=== PATIENT | male | born 1930 | race Asian ===

== ENCOUNTER 2017-01-09 08:00 | Day surgery (SDC) | payer MEDICARE, OTHER ==
[~2017-01-09] VITALS: Ht 166.4 cm; Wt 77.2 kg
[~2017-01-09 08:00] MED LIST: ASPI81TA39 PO; CLOP75TA32 PO; METO50TA12 PO; ROSU10 PO; TRAM50TA4 PO; VALS160T2 PO; VITAD1000 PO
[2017-01-09] MEDS ORDERED: HYALURONATE SODIUM 12 MG/ML 0.8 ML SYRINGE IO ONE (08:01)
[2017-01-09] MEDS ORDERED: FentaNYL CITRATE-PF 100 MCG/2 ML VIAL IVP ONE (08:01)
[2017-01-09] MEDS ORDERED: TETRACAINE HCL VISCOUS 0.5% 5 ML OPHTHALMIC SOLUTION OD ONE (08:01)
[2017-01-09] MEDS ORDERED: DEXAMETHASONE SOD PHOS 4 MG/ML VIAL IVP ONE (08:01)
[2017-01-09] MEDS ORDERED: HYALURONATE SOD/CHONDROITIN SOD 0.5 ML VIAL IO ONE (08:01)
[2017-01-09] MEDS ORDERED: ACETYLCHOLINE CHLORIDE 1 EA INTRAOCULAR SOLUTION KIT IO ONE (08:01)
[2017-01-09] MEDS ORDERED: POVIDONE-IODINE 10% 15 ML SOLUTION UD TP ONE (08:01)
[2017-01-09] MEDS ORDERED: LIDOCAINE HCL/PF 1% 2 ML VIAL IM ONE (08:01)
[2017-01-09] MEDS ORDERED: MIDAZOLAM HCL 2 MG/2 ML VIAL IVP ONE (08:01)
[2017-01-09] MEDS ORDERED: RINGERS SOLUTION,LACTATED 500 ML IV ONE ×2 (08:17→09:00)
[2017-01-09] MEDS ORDERED: MOXIFLOXACIN HCL 0.5% 3 ML OPHTHALMIC SOLUTION ONE (08:18)
[2017-01-09] MEDS ORDERED: TROPICAMIDE 1% 2 ML OPHTHALMIC SOLUTION ONE (08:18)
[2017-01-09] MEDS ORDERED: PHENYLEPHRINE HCL 2.5% 2 ML OPHTHALMIC SOLUTION ONE (08:18)
[2017-01-09] MEDS ORDERED: DICLOFENAC SODIUM 0.1% 2.5 ML OPHTHALMIC SOLUTION ONE (08:18)
[2017-01-09] MEDS ORDERED: MOXIFLOXACIN HCL 0.5% 3 ML OPHTHALMIC SOLUTION OD ONE (09:00)
[2017-01-09] MEDS ORDERED: DICLOFENAC SODIUM 0.1% 2.5 ML OPHTHALMIC SOLUTION OD ONE (09:00)
[2017-01-09] MEDS: PHENYLEPHRINE HCL 2.5% 2 ML OPHTHALMIC SOLUTION OD SCH ×2 (09:18→09:23)
[2017-01-09] MEDS: TROPICAMIDE 1% 2 ML OPHTHALMIC SOLUTION OD SCH ×2 (09:18→09:23)
== END 2017-01-09 12:00 | disposition home or self-care (01) ==
LOC: SURGERY 08:00
PROVIDERS: ATTEND Specialist
DX: H25.011 Cortical age-related cataract, right eye (principal); E78.00 Pure hypercholesterolemia, unspecified; M19.90 Unspecified osteoarthritis, unspecified site; H40.9 Unspecified glaucoma; I10 Essential (primary) hypertension; I25.119 Atherosclerotic heart disease of native coronary artery with unspecified angina pectoris; Z72.89 Other problems related to lifestyle; Z91.013 Allergy to seafood; Z79.01 Long term (current) use of anticoagulants; Z79.82 Long term (current) use of aspirin; Z96.652 Presence of left artificial knee joint; Z87.891 Personal history of nicotine dependence
CPT/HCPCS: 0191T; 66984; 93005; J1100; J2250; J3010; J3490; J7120

== ENCOUNTER 2017-03-02 08:43 | Inpatient (IN) | payer MEDICARE, OTHER ==
[~2017-03-02] VITALS: Ht 160 cm; Wt 72.7 kg
[~2017-03-02 08:43] MED LIST changes: +METO-558 PO; -METO50TA12 PO
[2017-03-02 09:30] LABS: BASOPHILS % (AUTO) 0.3 % (0.0-2.0); EOSINOPHILS % (AUTO) 1.9 % (1.0-6.0); HEMATOCRIT 39.9 % (41-53); HEMOGLOBIN 13.6 g/dL (13.5-17.5); LYMPHOCYTES # (AUTO) 1.2 K/uL (1.0-4.8); LYMPHOCYTES % (AUTO) 12.4 % (22.0-44.0); MEAN CORPUSCULAR HEMOGLOBIN 33.7 pg (26.0-34.0); MEAN CORPUSCULAR VOLUME 99 fL (80-100); MONOCYTES # (AUTO) 0.6 K/uL (0.1-1.0); MONOCYTES % (AUTO) 5.7 % (2.0-9.0); NEUTROPHILS # (AUTO) 7.7 K/uL (1.8-7.7); NEUTROPHILS % (AUTO) 79.7 % (40.0-70.0); PLATELET COUNT (AUTO) 118 K/uL (150-450); RED BLOOD CELL COUNT(AUTO) 4.02 MIL/uL (4.50-5.90); RED CELL DISTRIBUTION WIDTH 12.8 % (11.5-14.5); WHITE BLOOD COUNT (AUTO) 9.7 K/uL (4.5-11.0)
[2017-03-02 09:40] LABS: ANION GAP 4 mmol/L (8-16); CALCIUM, TOTAL 8.2 mg/dL (8.8-10.5); CARBON DIOXIDE 30 mmol/L (22-29); CHLORIDE 100 mmol/L (98-107); CREATININE 0.78 mg/dL (0.60-1.30); GLOMERULAR FILTR. RATE CALC > 60 mL/min (>60); POTASSIUM 4.4 mmol/L (3.5-5.1); SODIUM SERUM 134 mmol/L (136-145); UREA NITROGEN, BLOOD 13 mg/dL (7-18)
[2017-03-02 09:50] LABS: B-TYPE NATRIURETIC PEPTIDE 293 pg/mL (0-100)
[2017-03-02 10:01] LABS: APPEARANCE,URINE CLEAR (CLEAR); GLUCOSE, URINE (UA) NEGATIVE (NEGATIVE); KETONES,URINE NEGATIVE (NEGATIVE); LEUKOCYTE ESTERASE ,URINE NEGATIVE (NEGATIVE); OCCULT BLOOD,URINE TRACE (NEGATIVE); PROTEIN,URINE SEE CONFIRM (NEGATIVE)
[2017-03-02 10:02] LABS: ADD UA MICROSCOPIC YES
[2017-03-02 10:05] LABS: ALANINE AMINOTRANSFERASE 26 U/L (12-78); ALBUMIN 3.5 g/dL (3.4-5.0); ASPARTATE AMINOTRANSFERASE 22 U/L (15-37); BILIRUBIN,TOTAL 0.7 mg/dL (0.1-1.0); CREATINE KINASE MB 3.4 ng/mL (0-5); CREATINE KINASE, TOTAL 96 U/L (39-308); TOTAL PROTEIN, SERUM 7.2 g/dL (6.4-8.2)
[2017-03-02 10:09] LABS: SULFOSALICYLIC ACID,URINE 1+ (Negative)
[2017-03-02 10:11] LABS: RBC,URINE 0-2 /HPF (0-2); SQUAMOUS EPITHELIAL CELL,UR Rare /LPF (None Seen); WBC,URINE None Seen /HPF (0-5)
[2017-03-02] MEDS ORDERED: FUROSEMIDE 40 MG/4 ML VIAL IVP ONE (10:30)
[2017-03-02] MEDS ORDERED: MAGNESIUM HYDROXIDE SUSPENSION 30 ML UDCUP PO PRN (10:45)
[2017-03-02] MEDS ORDERED: ALBUTEROL SULFATE 2.5 MG/0.5 ML NEB SOLUTION NEB PRN (10:45)
[2017-03-02] MEDS ORDERED: OxyCODONE HCL/ACETAMINOPHEN 5-325 MG TABLET PO PRN (10:45)
[2017-03-02] MEDS: CLOPIDOGREL BISULFATE 75 MG TABLET PO SCH (10:45)
[2017-03-02] MEDS: ASPIRIN 81 MG CHEWABLE TABLET PO SCH (10:45)
[2017-03-02 12:08] VITALS: BP 105/71
[2017-03-02] MEDS ORDERED: PNEUMOCOCCAL VACCINE POLYVALENT 0.5 ML VIAL [PPSV23] IM ONE (12:45)
[2017-03-02] MEDS ORDERED: INFLUENZA VIRUS VACCINE QVS 2017-18 (3YR+)/PF 60 MCG/0.5 ML SYRINGE IM ONE (12:45)
[2017-03-02 15:04] VITALS: BP 120/74
[2017-03-02] MEDS: HEPARIN SODIUM,PORCINE 5,000 UNITS/ML VIAL SQ SCH (16:31)
[2017-03-02 19:54] VITALS: BP 113/68
[2017-03-02] MEDS: ROSUVASTATIN CALCIUM 10 MG TABLET PO SCH (21:51)
[2017-03-02] MEDS: DOCUSATE SODIUM 100 MG CAPSULE PO SCH (21:51)
[2017-03-03] VITALS: BP 105/65
[2017-03-03] MEDS: HEPARIN SODIUM,PORCINE 5,000 UNITS/ML VIAL SQ SCH ×4 (00:32→23:11)
[2017-03-03 04:11] VITALS: BP 102/58
[2017-03-03 07:45] VITALS: BP 108/65
[2017-03-03 08:16] LABS: ANION GAP 2 mmol/L (8-16); CALCIUM, TOTAL 8.1 mg/dL (8.8-10.5); CARBON DIOXIDE 34 mmol/L (22-29); CHLORIDE 94 mmol/L (98-107); GLOMERULAR FILTR. RATE CALC > 60 mL/min (>60); POTASSIUM 4.4 mmol/L (3.5-5.1); SODIUM SERUM 130 mmol/L (136-145); UREA NITROGEN, BLOOD 12 mg/dL (7-18)
[2017-03-03] MEDS: DOCUSATE SODIUM 100 MG CAPSULE PO SCH ×2 (09:17→20:09)
[2017-03-03] MEDS: PANTOPRAZOLE SODIUM 40 MG DR TABLET PO SCH (09:17)
[2017-03-03] MEDS: ASPIRIN 81 MG CHEWABLE TABLET PO SCH (09:17)
[2017-03-03] MEDS: CLOPIDOGREL BISULFATE 75 MG TABLET PO SCH (09:17)
[2017-03-03 11:47] VITALS: BP 132/48
[2017-03-03] MEDS ORDERED: FUROSEMIDE 20 MG TABLET PO SCH (13:15)
[2017-03-03 15:50] VITALS: BP 126/74
[2017-03-03 19:43] VITALS: BP 125/72
[2017-03-03] MEDS: ROSUVASTATIN CALCIUM 10 MG TABLET PO SCH (20:09)
[2017-03-04 00:29] VITALS: BP 147/79
[2017-03-04 03:52] VITALS: BP 144/80
[2017-03-04 06:28] LABS: BASOPHILS # (AUTO) 0.02 K/uL (0.00-0.20); BASOPHILS % (AUTO) 0.2 % (0.0-2.0); EOSINOPHILS # (AUTO) 0.11 K/uL (0.00-0.70); EOSINOPHILS % (AUTO) 1.16 % (1.0-6.0); HEMATOCRIT 38.6 % (41-53); HEMOGLOBIN 12.9 g/dL (13.5-17.5); LYMPHOCYTES # (AUTO) 1.5 K/uL (1.0-4.8); LYMPHOCYTES % (AUTO) 15.8 % (22.0-44.0); MEAN CORPUSCULAR HEMOGLOBIN 33.2 pg (26.0-34.0); MEAN CORPUSCULAR HGB CONC 33.4 G/dL (31.0-37.0); MEAN CORPUSCULAR VOLUME 99 fL (80-100); MONOCYTES # (AUTO) 0.7 K/uL (0.1-1.0); MONOCYTES % (AUTO) 7.9 % (2.0-9.0); PLATELET COUNT (AUTO) 92 K/uL (150-450); RED BLOOD CELL COUNT(AUTO) 3.88 MIL/uL (4.50-5.90); RED CELL DISTRIBUTION WIDTH 12.4 % (11.5-14.5); WHITE BLOOD COUNT (AUTO) 9.3 K/uL (4.5-11.0)
[2017-03-04 06:40] LABS: ANION GAP 6 mmol/L (8-16); CALCIUM, TOTAL 8.2 mg/dL (8.8-10.5); CARBON DIOXIDE 34 mmol/L (22-29); CHLORIDE 90 mmol/L (98-107); CREATININE 0.73 mg/dL (0.60-1.30); GLOMERULAR FILTR. RATE CALC > 60 mL/min (>60); POTASSIUM 4.3 mmol/L (3.5-5.1); SODIUM SERUM 130 mmol/L (136-145); UREA NITROGEN, BLOOD 15 mg/dL (7-18)
[2017-03-04 07:30] VITALS: BP 143/78
[2017-03-04] MEDS ORDERED: FUROSEMIDE 20 MG TABLET JT SCH (09:00)
[2017-03-04] MEDS ORDERED: FURO-152 PO (09:03)
[2017-03-04] MEDS ORDERED: FUROSEMIDE 20 MG/2 ML VIAL IVP SCH (09:23)
[2017-03-04] MEDS: NITROGLYCERIN 2% (1 GM=INCH) PACKET TP SCH ×2 (09:26→16:38)
[2017-03-04] MEDS: PANTOPRAZOLE SODIUM 40 MG DR TABLET PO SCH (09:27)
[2017-03-04] MEDS: ASPIRIN 81 MG CHEWABLE TABLET PO SCH (09:27)
[2017-03-04] MEDS: DOCUSATE SODIUM 100 MG CAPSULE PO SCH ×2 (09:27→21:30)
[2017-03-04] MEDS: CLOPIDOGREL BISULFATE 75 MG TABLET PO SCH (09:27)
[2017-03-04] MEDS ORDERED: METOPROLOL SUCCINATE 50 MG ER TABLET PO ONE (09:45)
[2017-03-04 12:00] VITALS: BP 118/69
[2017-03-04] MEDS: APIXABAN 5 MG TABLET PO SCH ×2 (13:19→21:30)
[2017-03-04] MEDS ORDERED: AMIODARONE HCL 50 MG in DEXTROSE 5%-WATER 97 ML IV ONE (15:30)
[2017-03-04] MEDS ORDERED: AMIODARONE HCL 50 MG in DEXTROSE 5%-WATER 99 ML IV ONE (15:30)
[2017-03-04 15:39] VITALS: BP 111/66
[2017-03-04] MEDS ORDERED: AMIODARONE HCL 360 MG in DEXTROSE 5%-WATER 242.8 ML IV ONE (15:40)
[2017-03-04 20:14] VITALS: BP 105/56
[2017-03-04] MEDS ORDERED: METOPROLOL SUCCINATE 50 MG ER TABLET PO SCH (21:00)
[2017-03-04] MEDS: ROSUVASTATIN CALCIUM 10 MG TABLET PO SCH (21:29)
[2017-03-04] MEDS ORDERED: AMIODARONE HCL 540 MG in DEXTROSE 5%-WATER 239.2 ML IV ONE (21:40)
[2017-03-05] VITALS (10 sets, daily range): BP systolic 106–202; BP diastolic 53–108
[2017-03-05] MEDS: NITROGLYCERIN 2% (1 GM=INCH) PACKET TP SCH ×4 (00:48→23:56)
[2017-03-05 06:19] LABS: BASOPHILS % (AUTO) 0.3 % (0.0-2.0); HEMATOCRIT 36.5 % (41-53); HEMOGLOBIN 12.6 g/dL (13.5-17.5); LYMPHOCYTES # (AUTO) 1.3 K/uL (1.0-4.8); LYMPHOCYTES % (AUTO) 14.5 % (22.0-44.0); MEAN CORPUSCULAR HGB CONC 34.4 G/dL (31.0-37.0); MEAN CORPUSCULAR VOLUME 99 fL (80-100); MONOCYTES # (AUTO) 0.9 K/uL (0.1-1.0); MONOCYTES % (AUTO) 9.9 % (2.0-9.0); NEUTROPHILS # (AUTO) 6.5 K/uL (1.8-7.7); NEUTROPHILS % (AUTO) 72.3 % (40.0-70.0); PLATELET COUNT (AUTO) 98 K/uL (150-450); RED BLOOD CELL COUNT(AUTO) 3.69 MIL/uL (4.50-5.90); RED CELL DISTRIBUTION WIDTH 12.7 % (11.5-14.5); WHITE BLOOD COUNT (AUTO) 8.9 K/uL (4.5-11.0)
[2017-03-05 06:34] LABS: ALANINE AMINOTRANSFERASE 18 U/L (12-78); ALBUMIN 3.3 g/dL (3.4-5.0); ANION GAP 2 mmol/L (8-16); ASPARTATE AMINOTRANSFERASE 16 U/L (15-37); BILIRUBIN,TOTAL 1.2 mg/dL (0.1-1.0); CALCIUM, TOTAL 8.2 mg/dL (8.8-10.5); CARBON DIOXIDE 34 mmol/L (22-29); CHLORIDE 87 mmol/L (98-107); CREATININE 0.77 mg/dL (0.60-1.30); GLOMERULAR FILTR. RATE CALC > 60 mL/min (>60); POTASSIUM 4.6 mmol/L (3.5-5.1); TOTAL PROTEIN, SERUM 6.8 g/dL (6.4-8.2); UREA NITROGEN, BLOOD 19 mg/dL (7-18)
[2017-03-05 06:49] LABS: SODIUM SERUM 123 mmol/L (136-145)
[2017-03-05] MEDS: ONDANSETRON HCL 4 MG/2 ML VIAL IVP PRN ×3 (08:26→12:30)
[2017-03-05] MEDS ORDERED: SODIUM CHLORIDE 0.9% 1,000 ML IV ONE (08:30)
[2017-03-05] MEDS ORDERED: TOLVAPTAN 15 MG TABLET PO ONE (10:00)
[2017-03-05] MEDS: DOCUSATE SODIUM 100 MG CAPSULE PO SCH ×2 (10:05→20:02)
[2017-03-05] MEDS: PANTOPRAZOLE SODIUM 40 MG DR TABLET PO SCH (10:05)
[2017-03-05] MEDS: CLOPIDOGREL BISULFATE 75 MG TABLET PO SCH (10:05)
[2017-03-05] MEDS: APIXABAN 5 MG TABLET PO SCH (10:05)
[2017-03-05] MEDS ORDERED: 0.9% SODIUM CHLORIDE 5 ML NEB SOLUTION NEB ONE (10:57)
[2017-03-05] MEDS ORDERED: ONDANSETRON HCL 4 MG/2 ML VIAL IVP PRN (11:00)
[2017-03-05 12:46] LABS: ABG A-A DIFF O2 261.7 mmHg (10-20.0); ABG BASE EXCESS 2.3 mmol/L (-2.0-3.0); ABG HCO3 23.8 mmol/L (22.0-26.0); ABG OXYHEMOGLOBIN 89.7 % (94.0-100.0); ABG PCO2 87 mmHg (35-45); ABG PH 7.169 (7.35-7.450); TEMPERATURE, FAHRENHEIT, BG 97.5 FAHREN (96.0-98.6)
[2017-03-05 12:47] LABS: ALLEN TEST, BLOOD GAS Positive
[2017-03-05] MEDS ORDERED: RAPID SEQUENCE KIT [RSI] 1 EACH KIT ONE ×2 (13:30)
[2017-03-05] MEDS ORDERED: SUCCINYLCHOLINE CHLORIDE 20 MG/ML 10 ML VIAL ONE (13:31)
[2017-03-05 13:47] LABS: ANION GAP 3 mmol/L (8-16); CALCIUM, TOTAL 6.9 mg/dL (8.8-10.5); CARBON DIOXIDE 33 mmol/L (22-29); CHLORIDE 93 mmol/L (98-107); CREATININE 0.98 mg/dL (0.60-1.30); GLOMERULAR FILTR. RATE CALC > 60 mL/min (>60); POTASSIUM 5.4 mmol/L (3.5-5.1); SODIUM SERUM 129 mmol/L (136-145); UREA NITROGEN, BLOOD 20 mg/dL (7-18)
[2017-03-05] MEDS ORDERED: NOREPINEPHRINE 4 MG/D5%-WATER 250 ML IV ONE (13:47)
[2017-03-05] MEDS ORDERED: DOPamine HCL 400 MG/D5%-WATER 250 ML IV ONE (13:50)
[2017-03-05 13:55] LABS: B-TYPE NATRIURETIC PEPTIDE 210 pg/mL (0-100)
[2017-03-05] MEDS ORDERED: DOPamine HCL 400 MG/D5%-WATER 250 ML IV PRN (14:01)
[2017-03-05] MEDS: NOREPINEPHRINE 4 MG/D5%-WATER 250 ML IV PRN ×2 (14:12→20:03)
[2017-03-05] MEDS: LORazepam 2 MG/ML VIAL IVP PRN ×4 (14:21→20:02)
[2017-03-05] MEDS ORDERED: DEXTROSE 5%-WATER 1,000 ML IV SCH (14:45)
[2017-03-05] MEDS ORDERED: AMIODARONE HCL 750 MG in DEXTROSE 5%-WATER 485 ML IV SCH (15:30)
[2017-03-05 15:48] LABS: ABG A-A DIFF O2 444.3 mmHg (10-20.0); ABG BASE EXCESS 4.3 mmol/L (-2.0-3.0); ABG HCO3 27.4 mmol/L (22.0-26.0); ABG OXYHEMOGLOBIN 98.1 % (94.0-100.0); ABG PCO2 51 mmHg (35-45); ABG PH 7.379 (7.35-7.450); TEMPERATURE, FAHRENHEIT, BG 97.7 FAHREN (96.0-98.6)
[2017-03-05] MEDS: FentaNYL CITRATE PF 500 MCG in DEXTROSE 5%-WATER 90 ML IV PRN ×2 (15:48→18:56)
[2017-03-05 15:49] LABS: ALLEN TEST, BLOOD GAS Positive
[2017-03-05] MEDS ORDERED: FUROSEMIDE 40 MG/4 ML VIAL IVP ONE (18:00)
[2017-03-05] MEDS ORDERED: FUROSEMIDE 40 MG/4 ML VIAL ONE (18:01)
[2017-03-05 18:16] LABS: PROCALCITONIN (PCT) 0.12 ng/mL (<0.50)
[2017-03-05] MEDS: METOPROLOL SUCCINATE 25 MG ER TABLET PO SCH (20:02)
[2017-03-05] MEDS: FUROSEMIDE 40 MG/4 ML VIAL IVP SCH (20:02)
[2017-03-05] MEDS: ROSUVASTATIN CALCIUM 10 MG TABLET PO SCH (21:28)
[2017-03-05] MEDS: ACETAMINOPHEN 325 MG TABLET PO PRN (21:35)
[2017-03-05] MEDS: PROPOFOL 1000 MG/ISO-OSM 100 ML IV PRN (21:43)
[2017-03-06] VITALS: BP 105/71
[2017-03-06] MEDS: PROPOFOL 1000 MG/ISO-OSM 100 ML IV PRN ×3 (02:35→17:50)
[2017-03-06] MEDS: NOREPINEPHRINE 4 MG/D5%-WATER 250 ML IV PRN ×2 (02:37→17:23)
[2017-03-06] MEDS: FentaNYL CITRATE PF 500 MCG in DEXTROSE 5%-WATER 90 ML IV PRN ×2 (03:51→15:42)
[2017-03-06 04:00] VITALS: BP 94/71
[2017-03-06 05:03] LABS: BASOPHILS % (AUTO) 0.2 % (0.0-2.0); EOSINOPHILS % (AUTO) 0.6 % (1.0-6.0); HEMATOCRIT 37.2 % (41-53); HEMOGLOBIN 12.8 g/dL (13.5-17.5); LYMPHOCYTES # (AUTO) 1.7 K/uL (1.0-4.8); LYMPHOCYTES % (AUTO) 13.7 % (22.0-44.0); MEAN CORPUSCULAR HEMOGLOBIN 33.6 pg (26.0-34.0); MEAN CORPUSCULAR HGB CONC 34.4 G/dL (31.0-37.0); MEAN CORPUSCULAR VOLUME 98 fL (80-100); MONOCYTES # (AUTO) 1.2 K/uL (0.1-1.0); MONOCYTES % (AUTO) 9.6 % (2.0-9.0); NEUTROPHILS # (AUTO) 9.3 K/uL (1.8-7.7); NEUTROPHILS % (AUTO) 75.9 % (40.0-70.0); PLATELET COUNT (AUTO) 122 K/uL (150-450); RED CELL DISTRIBUTION WIDTH 12.3 % (11.5-14.5); WHITE BLOOD COUNT (AUTO) 12.3 K/uL (4.5-11.0)
[2017-03-06 05:37] LABS: ALBUMIN 3.2 g/dL (3.4-5.0); BILIRUBIN,TOTAL 1.6 mg/dL (0.1-1.0); CALCIUM, TOTAL 8.1 mg/dL (8.8-10.5); CREATININE 1.2 mg/dL (0.60-1.30); MAGNESIUM 1.6 mg/dL (1.80-2.40); PHOSPHORUS 2.2 mg/dL (2.5-4.9); POTASSIUM 3.4 mmol/L (3.5-5.1); THYROID STIMULATING HORMONE 1.03 uIU/mL (0.36-3.74); TOTAL PROTEIN, SERUM 6.7 g/dL (6.4-8.2)
[2017-03-06 08:00] VITALS: BP 123/68
[2017-03-06] MEDS: NITROGLYCERIN 2% (1 GM=INCH) PACKET TP SCH ×2 (08:00→16:00)
[2017-03-06] MEDS ORDERED: POTASSIUM CHLORIDE 20 MEQ ER TABLET PO PRN (08:15)
[2017-03-06] MEDS ORDERED: MAGNESIUM SULFATE 2 GM in DEXTROSE 5%-WATER 50 ML IV PRN (08:15)
[2017-03-06] MEDS ORDERED: MAGNESIUM SULFATE 4 GM/WATER 100 ML IV PRN (08:15)
[2017-03-06] MEDS ORDERED: MAGNESIUM OXIDE 400 MG TABLET PO PRN (08:15)
[2017-03-06] MEDS: FUROSEMIDE 40 MG/4 ML VIAL IVP SCH ×2 (08:26→20:28)
[2017-03-06] MEDS: PANTOPRAZOLE SODIUM 40 MG DR TABLET PO SCH (08:26)
[2017-03-06] MEDS: DOCUSATE SODIUM 100 MG CAPSULE PO SCH ×2 (08:26→20:28)
[2017-03-06] MEDS ORDERED: MAGNESIUM SULFATE 1 GM in DEXTROSE 5%-WATER 50 ML IV ONE (08:45)
[2017-03-06 09:02] LABS: ABG A-A DIFF O2 168.9 mmHg (10-20.0); ABG BASE EXCESS 11.6 mmol/L (-2.0-3.0); ABG HCO3 35.3 mmol/L (22.0-26.0); ABG OXYHEMOGLOBIN 96.2 % (94.0-100.0); ABG PCO2 32 mmHg (35-45); ABG PH 7.631 (7.35-7.450); ALLEN TEST, BLOOD GAS Positive; TEMPERATURE, FAHRENHEIT, BG 98.6 FAHREN (96.0-98.6)
[2017-03-06] MEDS ORDERED: POTASSIUM PHOS,M-BASIC-D-BASIC 10 MEQ in DEXTROSE 5%-WATER 50 ML IV ONE (09:15)
[2017-03-06] MEDS: CefTRIAXone 1 GM/DEXTROSE 50 ML IV SCH (09:26)
[2017-03-06] MEDS ORDERED: SODIUM CHLORIDE 0.9% 250 ML IV ONE ×2 (09:27→20:25)
[2017-03-06 10:07] LABS: APPEARANCE,URINE CLEAR (CLEAR); GLUCOSE, URINE (UA) NEGATIVE (NEGATIVE); KETONES,URINE NEGATIVE (NEGATIVE); LEUKOCYTE ESTERASE ,URINE NEGATIVE (NEGATIVE); OCCULT BLOOD,URINE SMALL (NEGATIVE); PROTEIN,URINE NEGATIVE (NEGATIVE)
[2017-03-06 10:15] LABS: ADD UA MICROSCOPIC YES
[2017-03-06 10:18] LABS: WBC,URINE 0-2 /HPF (0-5)
[2017-03-06 10:20] LABS: SQUAMOUS EPITHELIAL CELL,UR Rare /LPF (None Seen)
[2017-03-06 12:00] VITALS: BP 104/68
[2017-03-06] MEDS: POTASSIUM CHL 10 MEQ/WATER 50 ML IV SCH ×2 (12:42→13:45)
[2017-03-06 12:45] LABS: ABG A-A DIFF O2 98.8 mmHg (10-20.0); ABG BASE EXCESS 12.4 mmol/L (-2.0-3.0); ABG HCO3 34.9 mmol/L (22.0-26.0); ABG OXYHEMOGLOBIN 97.3 % (94.0-100.0); ABG PCO2 44 mmHg (35-45); ABG PH 7.523 (7.35-7.450); TEMPERATURE, FAHRENHEIT, BG 98.6 FAHREN (96.0-98.6)
[2017-03-06 12:46] LABS: ALLEN TEST, BLOOD GAS Positive
[2017-03-06 16:00] VITALS: BP 106/73
[2017-03-06] MEDS ORDERED: DIGOXIN 250 MCG/ML 2 ML AMP ONE (16:44)
[2017-03-06] MEDS ORDERED: DIGOXIN 250 MCG/ML 2 ML AMP IVP ONE (16:45)
[2017-03-06 17:47] LABS: CALCIUM, TOTAL 7.5 mg/dL (8.8-10.5); CREATININE 1.29 mg/dL (0.60-1.30); MAGNESIUM 2.1 mg/dL (1.80-2.40); PHOSPHORUS 3.5 mg/dL (2.5-4.9); POTASSIUM 3.8 mmol/L (3.5-5.1)
[2017-03-06] MEDS ORDERED: ETOMIDATE 2 MG/ML 10 ML VIAL IV ONE (18:03)
[2017-03-06] MEDS ORDERED: SUCCINYLCHOLINE CHLORIDE 20 MG/ML 10 ML VIAL IM ONE (18:03)
[2017-03-06 20:00] VITALS: BP 110/73
[2017-03-06] MEDS: METOPROLOL SUCCINATE 25 MG ER TABLET PO SCH (20:29)
[2017-03-06] MEDS: ROSUVASTATIN CALCIUM 10 MG TABLET PO SCH (20:29)
[2017-03-07] VITALS: BP 108/77
[2017-03-07] MEDS: NITROGLYCERIN 2% (1 GM=INCH) PACKET TP SCH ×4 (00:29→23:24)
[2017-03-07] MEDS: PROPOFOL 1000 MG/ISO-OSM 100 ML IV PRN ×3 (02:41→18:02)
[2017-03-07 04:00] VITALS: BP 115/72
[2017-03-07] MEDS: FentaNYL CITRATE PF 500 MCG in DEXTROSE 5%-WATER 90 ML IV PRN ×2 (04:58→18:02)
[2017-03-07] MEDS: HALOPERIDOL LACTATE 5 MG/ML VIAL IVP PRN ×2 (04:58→11:10)
[2017-03-07 05:10] LABS: BASOPHILS % (AUTO) 0.3 % (0.0-2.0); EOSINOPHILS % (AUTO) 2.5 % (1.0-6.0); HEMATOCRIT 36.8 % (41-53); HEMOGLOBIN 12.7 g/dL (13.5-17.5); LYMPHOCYTES # (AUTO) 1.2 K/uL (1.0-4.8); LYMPHOCYTES % (AUTO) 10.1 % (22.0-44.0); MEAN CORPUSCULAR HEMOGLOBIN 33.6 pg (26.0-34.0); MEAN CORPUSCULAR HGB CONC 34.4 G/dL (31.0-37.0); MEAN CORPUSCULAR VOLUME 98 fL (80-100); MONOCYTES % (AUTO) 8.1 % (2.0-9.0); NEUTROPHILS # (AUTO) 9.7 K/uL (1.8-7.7); PLATELET COUNT (AUTO) 121 K/uL (150-450); RED BLOOD CELL COUNT(AUTO) 3.76 MIL/uL (4.50-5.90); RED CELL DISTRIBUTION WIDTH 12.9 % (11.5-14.5); WHITE BLOOD COUNT (AUTO) 12.3 K/uL (4.5-11.0)
[2017-03-07 06:13] LABS: BILIRUBIN,TOTAL 1.2 mg/dL (0.1-1.0); CALCIUM, TOTAL 8.3 mg/dL (8.8-10.5); CREATININE 1.28 mg/dL (0.60-1.30); DIGOXIN 0.57 ng/mL (0.90-2.00); MAGNESIUM 2.2 mg/dL (1.80-2.40); PHOSPHORUS 4.3 mg/dL (2.5-4.9); POTASSIUM 4.2 mmol/L (3.5-5.1); TOTAL PROTEIN, SERUM 6.8 g/dL (6.4-8.2)
[2017-03-07 08:00] VITALS: BP 114/78
[2017-03-07] MEDS: CefTRIAXone 1 GM/DEXTROSE 50 ML IV SCH (08:03)
[2017-03-07] MEDS: FUROSEMIDE 40 MG/4 ML VIAL IVP SCH ×2 (08:04→21:01)
[2017-03-07] MEDS: PANTOPRAZOLE SODIUM 40 MG DR TABLET PO SCH (08:04)
[2017-03-07] MEDS: DOCUSATE SODIUM 100 MG CAPSULE PO SCH ×2 (08:05→21:01)
[2017-03-07] MEDS ORDERED: DIGOXIN 250 MCG/ML 2 ML AMP IVP ONE (08:45)
[2017-03-07] MEDS ORDERED: HEPARIN SODIUM,PORCINE 5,000 UNITS/ML VIAL IVP PRN ×2 (08:45)
[2017-03-07 09:53] LABS: INR 1.1 (0.9-1.1); PROTHROMBIN TIME 11.2 SEC (9.4-11.6)
[2017-03-07] MEDS: HEPARIN SODIUM 25000 UNITS/D5W 250 ML IV PRN ×2 (10:02→23:20)
[2017-03-07 12:00] VITALS: BP 108/66
[2017-03-07] MEDS: ACETAMINOPHEN 325 MG TABLET PO PRN (14:38)
[2017-03-07 16:00] VITALS: BP 92/70
[2017-03-07] MEDS ORDERED: LORazepam 2 MG/ML VIAL IVP PRN (16:30)
[2017-03-07 17:55] LABS: ABG A-A DIFF O2 79.8 mmHg (10-20.0); ABG BASE EXCESS 9.1 mmol/L (-2.0-3.0); ABG OXYHEMOGLOBIN 98.2 % (94.0-100.0); ABG PCO2 45 mmHg (35-45); ALLEN TEST, BLOOD GAS Positive; TEMPERATURE, FAHRENHEIT, BG 98.8 FAHREN (96.0-98.6)
[2017-03-07 20:00] VITALS: BP 110/68
[2017-03-07] MEDS: ROSUVASTATIN CALCIUM 10 MG TABLET PO SCH (21:01)
[2017-03-07] MEDS: METOPROLOL SUCCINATE 25 MG ER TABLET PO SCH (21:02)
[2017-03-08] VITALS: BP 107/68
[2017-03-08 04:00] VITALS: BP 107/62
[2017-03-08] MEDS: PROPOFOL 1000 MG/ISO-OSM 100 ML IV PRN ×2 (04:27→16:33)
[2017-03-08] MEDS ORDERED: SODIUM CHLORIDE 0.9% 250 ML IV ONE ×2 (04:38→16:50)
[2017-03-08 06:22] LABS: LYMPHOCYTES # (AUTO) 1.2 K/uL (1.0-4.8); LYMPHOCYTES % (AUTO) 12.3 % (22.0-44.0); MONOCYTES # (AUTO) 0.8 K/uL (0.1-1.0); MONOCYTES % (AUTO) 8.4 % (2.0-9.0); NEUTROPHILS # (AUTO) 7.2 K/uL (1.8-7.7)
[2017-03-08 06:27] LABS: BASOPHILS % (AUTO) 0.3 % (0.0-2.0); EOSINOPHILS % (AUTO) 5.2 % (1.0-6.0); HEMATOCRIT 34.8 % (41-53); MEAN CORPUSCULAR HEMOGLOBIN 33.9 pg (26.0-34.0); MEAN CORPUSCULAR HGB CONC 34.5 G/dL (31.0-37.0); MEAN CORPUSCULAR VOLUME 98 fL (80-100); NEUTROPHILS % (AUTO) 73.8 % (40.0-70.0); PLATELET COUNT (AUTO) 111 K/uL (150-450); RED BLOOD CELL COUNT(AUTO) 3.54 MIL/uL (4.50-5.90); RED CELL DISTRIBUTION WIDTH 12.6 % (11.5-14.5); WHITE BLOOD COUNT (AUTO) 9.8 K/uL (4.5-11.0)
[2017-03-08 06:42] LABS: ALBUMIN 2.8 g/dL (3.4-5.0); BILIRUBIN,TOTAL 0.7 mg/dL (0.1-1.0); CALCIUM, TOTAL 8.1 mg/dL (8.8-10.5); CREATININE 1.19 mg/dL (0.60-1.30); MAGNESIUM 2.2 mg/dL (1.80-2.40); PHOSPHORUS 4.2 mg/dL (2.5-4.9); POTASSIUM 3.4 mmol/L (3.5-5.1); TOTAL PROTEIN, SERUM 6.8 g/dL (6.4-8.2)
[2017-03-08] MEDS: POTASSIUM CHL 10 MEQ/WATER 50 ML IV PRN ×3 (06:56→08:57)
[2017-03-08] MEDS: FentaNYL CITRATE PF 500 MCG in DEXTROSE 5%-WATER 90 ML IV PRN ×2 (07:21→19:33)
[2017-03-08 08:00] VITALS: BP 121/72
[2017-03-08 08:29] LABS: ABG A-A DIFF O2 91.7 mmHg (10-20.0); ABG BASE EXCESS 10.4 mmol/L (-2.0-3.0); ABG PCO2 46 mmHg (35-45); ABG PH 7.486 (7.35-7.450); ALLEN TEST, BLOOD GAS Positive; TEMPERATURE, FAHRENHEIT, BG 98.6 FAHREN (96.0-98.6)
[2017-03-08] MEDS: PANTOPRAZOLE SODIUM 40 MG DR TABLET PO SCH (08:35)
[2017-03-08] MEDS: FUROSEMIDE 40 MG/4 ML VIAL IVP SCH ×2 (08:35→20:01)
[2017-03-08] MEDS: NITROGLYCERIN 2% (1 GM=INCH) PACKET TP SCH ×2 (08:35→16:00)
[2017-03-08] MEDS: DOCUSATE SODIUM 100 MG CAPSULE PO SCH ×2 (08:35→20:01)
[2017-03-08] MEDS: CefTRIAXone 1 GM/DEXTROSE 50 ML IV SCH (08:36)
[2017-03-08] MEDS: HALOPERIDOL LACTATE 5 MG/ML VIAL IVP PRN (08:57)
[2017-03-08 11:25] LABS: ABG A-A DIFF O2 121.6 mmHg (10-20.0); ABG BASE EXCESS 11.7 mmol/L (-2.0-3.0); ABG HCO3 33.7 mmol/L (22.0-26.0); ABG OXYHEMOGLOBIN 96.9 % (94.0-100.0); ABG PCO2 54 mmHg (35-45); ABG PH 7.441 (7.35-7.450); TEMPERATURE, FAHRENHEIT, BG 98.6 FAHREN (96.0-98.6)
[2017-03-08 11:26] LABS: ALLEN TEST, BLOOD GAS Positive
[2017-03-08 12:00] VITALS: BP 116/64
[2017-03-08 16:00] VITALS: BP 97/67
[2017-03-08 20:00] VITALS: BP 106/58
[2017-03-08] MEDS: METOPROLOL SUCCINATE 25 MG ER TABLET PO SCH (20:01)
[2017-03-08] MEDS: ROSUVASTATIN CALCIUM 10 MG TABLET PO SCH (20:01)
[2017-03-09] VITALS (9 sets, daily range): BP systolic 91–147; BP diastolic 59–83
[2017-03-09] MEDS: NITROGLYCERIN 2% (1 GM=INCH) PACKET TP SCH ×3 (00:13→16:44)
[2017-03-09] MEDS: HEPARIN SODIUM 25000 UNITS/D5W 250 ML IV PRN (01:39)
[2017-03-09] MEDS: PROPOFOL 1000 MG/ISO-OSM 100 ML IV PRN ×4 (01:39→22:38)
[2017-03-09 06:03] LABS: CALCIUM, TOTAL 8.4 mg/dL (8.8-10.5); CREATININE 1.19 mg/dL (0.60-1.30); MAGNESIUM 2.4 mg/dL (1.80-2.40); PHOSPHORUS 4.3 mg/dL (2.5-4.9); POTASSIUM 3.6 mmol/L (3.5-5.1)
[2017-03-09] MEDS: CefTRIAXone 1 GM/DEXTROSE 50 ML IV SCH (08:23)
[2017-03-09] MEDS: FUROSEMIDE 40 MG/4 ML VIAL IVP SCH ×2 (08:23→19:57)
[2017-03-09] MEDS: ASPIRIN 81 MG CHEWABLE TABLET PO SCH (08:24)
[2017-03-09] MEDS: DOCUSATE SODIUM 100 MG CAPSULE PO SCH ×2 (08:24→19:57)
[2017-03-09] MEDS: PANTOPRAZOLE SODIUM 40 MG DR TABLET PO SCH (08:24)
[2017-03-09] MEDS: POTASSIUM CHL 10 MEQ/WATER 50 ML IV PRN ×3 (08:26→11:35)
[2017-03-09] MEDS ORDERED: SODIUM CHLORIDE 0.9% 250 ML IV ONE (08:32)
[2017-03-09 11:55] LABS: ABG A-A DIFF O2 96.2 mmHg (10-20.0); ABG BASE EXCESS 12.5 mmol/L (-2.0-3.0); ABG HCO3 34.2 mmol/L (22.0-26.0); ABG OXYHEMOGLOBIN 95.3 % (94.0-100.0); ABG PCO2 57 mmHg (35-45); ABG PH 7.428 (7.35-7.450)
[2017-03-09 11:56] LABS: ALLEN TEST, BLOOD GAS Positive
[2017-03-09] MEDS: ALBUTEROL SULFATE 2.5 MG/0.5 ML NEB SOLUTION NEB SCH ×2 (14:25→20:03)
[2017-03-09] MEDS: ACETYLCYSTEINE 20% 200 MG/ML 4 ML NEB SOLUTION NEB SCH ×2 (14:26→20:03)
[2017-03-09] MEDS: BRIMONIDINE TARTRATE 0.1% 5 ML OPHTHALMIC SOLUTION OU SCH ×2 (16:43→21:00)
[2017-03-09] MEDS: FentaNYL CITRATE PF 500 MCG in DEXTROSE 5%-WATER 90 ML IV PRN (17:02)
[2017-03-09] MEDS: ROSUVASTATIN CALCIUM 10 MG TABLET PO SCH (19:57)
[2017-03-09] MEDS: METOPROLOL SUCCINATE 25 MG ER TABLET PO SCH (19:58)
[2017-03-09] MEDS: LATANOPROST 0.005% 2.5 ML OPHTHALMIC SOLUTION OU SCH (19:58)
[2017-03-09] MEDS: DORZOLAMIDE/TIMOLOL 2-0.5% [22.3-6.8MG/ML] 10 ML OPHTHALMIC SOLUTION OU SCH (19:58)
[2017-03-10] VITALS (9 sets, daily range): BP systolic 100–149; BP diastolic 49–78
[2017-03-10] MEDS: NITROGLYCERIN 2% (1 GM=INCH) PACKET TP SCH ×4 (00:04→23:41)
[2017-03-10] MEDS: ACETYLCYSTEINE 20% 200 MG/ML 4 ML NEB SOLUTION NEB SCH ×4 (02:04→19:50)
[2017-03-10] MEDS: ALBUTEROL SULFATE 2.5 MG/0.5 ML NEB SOLUTION NEB SCH ×4 (02:04→19:50)
[2017-03-10] MEDS: PROPOFOL 1000 MG/ISO-OSM 100 ML IV PRN ×4 (02:18→23:41)
[2017-03-10] MEDS: HEPARIN SODIUM 25000 UNITS/D5W 250 ML IV PRN (05:30)
[2017-03-10 05:46] LABS: ALANINE AMINOTRANSFERASE 24 U/L (12-78); ALBUMIN 2.8 g/dL (3.4-5.0); ANION GAP 3 mmol/L (8-16); ASPARTATE AMINOTRANSFERASE 20 U/L (15-37); BILIRUBIN,TOTAL 0.5 mg/dL (0.1-1.0); CALCIUM, TOTAL 8.4 mg/dL (8.8-10.5); CARBON DIOXIDE 34 mmol/L (22-29); CHLORIDE 94 mmol/L (98-107); CREATININE 1.12 mg/dL (0.60-1.30); GLOMERULAR FILTR. RATE CALC > 60 mL/min (>60); POTASSIUM 3.7 mmol/L (3.5-5.1); SODIUM SERUM 131 mmol/L (136-145); TOTAL PROTEIN, SERUM 6.9 g/dL (6.4-8.2); UREA NITROGEN, BLOOD 28 mg/dL (7-18)
[2017-03-10 05:57] LABS: BASOPHILS % (AUTO) 0.3 % (0.0-2.0); EOSINOPHILS % (AUTO) 5.6 % (1.0-6.0); HEMATOCRIT 33.1 % (41-53); HEMOGLOBIN 11.3 g/dL (13.5-17.5); LYMPHOCYTES % (AUTO) 10.1 % (22.0-44.0); MEAN CORPUSCULAR HEMOGLOBIN 33.6 pg (26.0-34.0); MEAN CORPUSCULAR HGB CONC 34.1 G/dL (31.0-37.0); MEAN CORPUSCULAR VOLUME 99 fL (80-100); NEUTROPHILS # (AUTO) 7.3 K/uL (1.8-7.7); PLATELET COUNT (AUTO) 150 K/uL (150-450); RED BLOOD CELL COUNT(AUTO) 3.35 MIL/uL (4.50-5.90); RED CELL DISTRIBUTION WIDTH 12.7 % (11.5-14.5); WHITE BLOOD COUNT (AUTO) 9.8 K/uL (4.5-11.0)
[2017-03-10] MEDS: DOCUSATE SODIUM 100 MG CAPSULE PO SCH ×2 (08:06→21:09)
[2017-03-10] MEDS: ASPIRIN 81 MG CHEWABLE TABLET PO SCH (08:06)
[2017-03-10] MEDS: FUROSEMIDE 40 MG/4 ML VIAL IVP SCH (08:06)
[2017-03-10] MEDS: PANTOPRAZOLE SODIUM 40 MG DR TABLET PO SCH (08:06)
[2017-03-10] MEDS: CefTRIAXone 1 GM/DEXTROSE 50 ML IV SCH (08:08)
[2017-03-10] MEDS: BRIMONIDINE TARTRATE 0.1% 5 ML OPHTHALMIC SOLUTION OU SCH (08:09)
[2017-03-10] MEDS: DORZOLAMIDE/TIMOLOL 2-0.5% [22.3-6.8MG/ML] 10 ML OPHTHALMIC SOLUTION OU SCH ×2 (08:09→21:10)
[2017-03-10] MEDS: POTASSIUM CHL 10 MEQ/WATER 50 ML IV SCH ×3 (10:01→12:06)
[2017-03-10 10:02] LABS: ABG A-A DIFF O2 88.1 mmHg (10-20.0); ABG BASE EXCESS 9.5 mmol/L (-2.0-3.0); ABG HCO3 32.1 mmol/L (22.0-26.0); ABG OXYHEMOGLOBIN 96.9 % (94.0-100.0); ABG PCO2 50 mmHg (35-45); ABG PH 7.444 (7.35-7.450); TEMPERATURE, FAHRENHEIT, BG 99.2 FAHREN (96.0-98.6)
[2017-03-10 10:03] LABS: ALLEN TEST, BLOOD GAS Positive
[2017-03-10] MEDS: ACETAMINOPHEN 325 MG TABLET PO PRN (15:29)
[2017-03-10] MEDS: BRIMONIDINE TARTRATE 0.1% 5 ML OPHTHALMIC SOLUTION OD SCH ×2 (15:38→21:09)
[2017-03-10] MEDS: METOPROLOL SUCCINATE 25 MG ER TABLET PO SCH (21:00)
[2017-03-10] MEDS: ROSUVASTATIN CALCIUM 10 MG TABLET PO SCH (21:09)
[2017-03-10] MEDS: LATANOPROST 0.005% 2.5 ML OPHTHALMIC SOLUTION OU SCH (21:10)
[2017-03-11] VITALS: BP 105/67
[2017-03-11] MEDS: ALBUTEROL SULFATE 2.5 MG/0.5 ML NEB SOLUTION NEB SCH ×4 (02:05→20:30)
[2017-03-11] MEDS: ACETYLCYSTEINE 20% 200 MG/ML 4 ML NEB SOLUTION NEB SCH ×4 (02:05→20:30)
[2017-03-11] MEDS: HEPARIN SODIUM 25000 UNITS/D5W 250 ML IV PRN (02:31)
[2017-03-11 04:00] VITALS: BP 103/65
[2017-03-11 05:35] LABS: ANION GAP 4 mmol/L (8-16); CALCIUM, TOTAL 8.6 mg/dL (8.8-10.5); CARBON DIOXIDE 34 mmol/L (22-29); CHLORIDE 93 mmol/L (98-107); CREATININE 0.89 mg/dL (0.60-1.30); GLOMERULAR FILTR. RATE CALC > 60 mL/min (>60); PHOSPHORUS 4.3 mg/dL (2.5-4.9); POTASSIUM 3.3 mmol/L (3.5-5.1); SODIUM SERUM 131 mmol/L (136-145); UREA NITROGEN, BLOOD 28 mg/dL (7-18)
[2017-03-11] MEDS: PROPOFOL 1000 MG/ISO-OSM 100 ML IV PRN (06:00)
[2017-03-11] MEDS: POTASSIUM CHL 10 MEQ/WATER 50 ML IV PRN ×3 (06:16→07:38)
[2017-03-11 07:10] LABS: BASOPHILS % (AUTO) 0.3 % (0.0-2.0); EOSINOPHILS % (AUTO) 6.4 % (1.0-6.0); HEMATOCRIT 32.2 % (41-53); LYMPHOCYTES # (AUTO) 1.2 K/uL (1.0-4.8); LYMPHOCYTES % (AUTO) 16.2 % (22.0-44.0); MEAN CORPUSCULAR HEMOGLOBIN 33.6 pg (26.0-34.0); MEAN CORPUSCULAR HGB CONC 34.1 G/dL (31.0-37.0); MEAN CORPUSCULAR VOLUME 98 fL (80-100); MONOCYTES # (AUTO) 0.7 K/uL (0.1-1.0); MONOCYTES % (AUTO) 9.6 % (2.0-9.0); NEUTROPHILS # (AUTO) 4.9 K/uL (1.8-7.7); NEUTROPHILS % (AUTO) 67.5 % (40.0-70.0); PLATELET COUNT (AUTO) 155 K/uL (150-450); RED BLOOD CELL COUNT(AUTO) 3.27 MIL/uL (4.50-5.90); RED CELL DISTRIBUTION WIDTH 12.8 % (11.5-14.5); WHITE BLOOD COUNT (AUTO) 7.3 K/uL (4.5-11.0)
[2017-03-11 07:37] LABS: B-TYPE NATRIURETIC PEPTIDE 152 pg/mL (0-100)
[2017-03-11] MEDS ORDERED: 0.9% SODIUM CHLORIDE 5 ML NEB SOLUTION NEB ONE (07:47)
[2017-03-11 08:00] VITALS: BP 96/57
[2017-03-11] MEDS: NITROGLYCERIN 2% (1 GM=INCH) PACKET TP SCH ×2 (08:00→15:34)
[2017-03-11] MEDS: CefTRIAXone 1 GM/DEXTROSE 50 ML IV SCH (08:19)
[2017-03-11] MEDS: DOCUSATE SODIUM 100 MG CAPSULE PO SCH ×2 (08:20→20:20)
[2017-03-11] MEDS: ASPIRIN 81 MG CHEWABLE TABLET PO SCH (08:20)
[2017-03-11] MEDS: PANTOPRAZOLE SODIUM 40 MG DR TABLET PO SCH (08:20)
[2017-03-11] MEDS: DORZOLAMIDE/TIMOLOL 2-0.5% [22.3-6.8MG/ML] 10 ML OPHTHALMIC SOLUTION OU SCH ×2 (08:21→20:21)
[2017-03-11] MEDS: BRIMONIDINE TARTRATE 0.1% 5 ML OPHTHALMIC SOLUTION OD SCH ×3 (08:21→20:21)
[2017-03-11] MEDS ORDERED: FUROSEMIDE 40 MG/4 ML VIAL IVP SCH (09:00)
[2017-03-11 09:09] LABS: ABG A-A DIFF O2 92.1 mmHg (10-20.0); ABG BASE EXCESS 6.7 mmol/L (-2.0-3.0); ABG HCO3 29.8 mmol/L (22.0-26.0); ABG OXYHEMOGLOBIN 96.9 % (94.0-100.0); ABG PCO2 46 mmHg (35-45); ABG PH 7.443 (7.35-7.450); TEMPERATURE, FAHRENHEIT, BG 98.6 FAHREN (96.0-98.6)
[2017-03-11 09:10] LABS: ALLEN TEST, BLOOD GAS Positive
[2017-03-11 11:00] LABS: ABG A-A DIFF O2 84.2 mmHg (10-20.0); ABG BASE EXCESS 6.9 mmol/L (-2.0-3.0); ABG HCO3 29.8 mmol/L (22.0-26.0); ABG OXYHEMOGLOBIN 97.3 % (94.0-100.0); ABG PCO2 49 mmHg (35-45); ABG PH 7.426 (7.35-7.450); ALLEN TEST, BLOOD GAS Positive; TEMPERATURE, FAHRENHEIT, BG 98.6 FAHREN (96.0-98.6)
[2017-03-11 12:00] VITALS: BP 123/69
[2017-03-11] MEDS: BUMETANIDE 0.25 MG/ML 4 ML VIAL IVP SCH ×2 (12:02→20:20)
[2017-03-11 13:08] LABS: ABG A-A DIFF O2 51.5 mmHg (10-20.0); ABG BASE EXCESS 8.9 mmol/L (-2.0-3.0); ABG HCO3 31.4 mmol/L (22.0-26.0); ABG OXYHEMOGLOBIN 95.8 % (94.0-100.0); ABG PCO2 52 mmHg (35-45); ABG PH 7.427 (7.35-7.450); TEMPERATURE, FAHRENHEIT, BG 98.6 FAHREN (96.0-98.6)
[2017-03-11 13:09] LABS: ALLEN TEST, BLOOD GAS Positive
[2017-03-11 16:00] VITALS: BP 135/81
[2017-03-11 20:00] VITALS: BP 108/73
[2017-03-11] MEDS: METOPROLOL SUCCINATE 25 MG ER TABLET PO SCH (20:19)
[2017-03-11] MEDS: LATANOPROST 0.005% 2.5 ML OPHTHALMIC SOLUTION OU SCH (20:20)
[2017-03-11] MEDS: ROSUVASTATIN CALCIUM 10 MG TABLET PO SCH (20:20)
[2017-03-12] VITALS: BP 110/61
[2017-03-12] MEDS: NITROGLYCERIN 2% (1 GM=INCH) PACKET TP SCH ×2 (00:01→08:46)
[2017-03-12] MEDS: HEPARIN SODIUM 25000 UNITS/D5W 250 ML IV PRN (00:14)
[2017-03-12] MEDS: ACETYLCYSTEINE 20% 200 MG/ML 4 ML NEB SOLUTION NEB SCH ×2 (02:16→07:35)
[2017-03-12] MEDS: ALBUTEROL SULFATE 2.5 MG/0.5 ML NEB SOLUTION NEB SCH ×2 (02:16→07:35)
[2017-03-12 04:00] VITALS: BP 106/61
[2017-03-12 05:56] LABS: ALANINE AMINOTRANSFERASE 32 U/L (12-78); ALBUMIN 2.8 g/dL (3.4-5.0); ANION GAP 4 mmol/L (8-16); ASPARTATE AMINOTRANSFERASE 26 U/L (15-37); BILIRUBIN,TOTAL 0.6 mg/dL (0.1-1.0); CALCIUM, TOTAL 8.6 mg/dL (8.8-10.5); CARBON DIOXIDE 35 mmol/L (22-29); CHLORIDE 97 mmol/L (98-107); CREATININE 0.98 mg/dL (0.60-1.30); GLOMERULAR FILTR. RATE CALC > 60 mL/min (>60); SODIUM SERUM 136 mmol/L (136-145); TOTAL PROTEIN, SERUM 7.2 g/dL (6.4-8.2); UREA NITROGEN, BLOOD 26 mg/dL (7-18)
[2017-03-12 06:22] LABS: BASOPHILS % (AUTO) 0.2 % (0.0-2.0); EOSINOPHILS % (AUTO) 2.6 % (1.0-6.0); HEMOGLOBIN 11.5 g/dL (13.5-17.5); LYMPHOCYTES # (AUTO) 1.5 K/uL (1.0-4.8); LYMPHOCYTES % (AUTO) 12.5 % (22.0-44.0); MEAN CORPUSCULAR HEMOGLOBIN 33.4 pg (26.0-34.0); MEAN CORPUSCULAR HGB CONC 33.8 G/dL (31.0-37.0); MEAN CORPUSCULAR VOLUME 99 fL (80-100); MONOCYTES # (AUTO) 1.2 K/uL (0.1-1.0); MONOCYTES % (AUTO) 10.1 % (2.0-9.0); NEUTROPHILS # (AUTO) 8.9 K/uL (1.8-7.7); NEUTROPHILS % (AUTO) 74.6 % (40.0-70.0); PLATELET COUNT (AUTO) 210 K/uL (150-450); RED BLOOD CELL COUNT(AUTO) 3.44 MIL/uL (4.50-5.90); RED CELL DISTRIBUTION WIDTH 12.6 % (11.5-14.5)
[2017-03-12 06:42] LABS: PHOSPHORUS 4.9 mg/dL (2.5-4.9)
[2017-03-12] MEDS ORDERED: 0.9% SODIUM CHLORIDE 5 ML NEB SOLUTION NEB ONE (07:14)
[2017-03-12 08:00] VITALS: BP 115/73
[2017-03-12] MEDS: ASPIRIN 81 MG CHEWABLE TABLET PO SCH (08:34)
[2017-03-12] MEDS: PANTOPRAZOLE SODIUM 40 MG DR TABLET PO SCH (08:35)
[2017-03-12] MEDS: DOCUSATE SODIUM 100 MG CAPSULE PO SCH (08:35)
[2017-03-12] MEDS: CefTRIAXone 1 GM/DEXTROSE 50 ML IV SCH (08:46)
[2017-03-12] MEDS: BUMETANIDE 0.25 MG/ML 4 ML VIAL IVP SCH (08:46)
[2017-03-12] MEDS: BRIMONIDINE TARTRATE 0.1% 5 ML OPHTHALMIC SOLUTION OD SCH (08:47)
[2017-03-12] MEDS: DORZOLAMIDE/TIMOLOL 2-0.5% [22.3-6.8MG/ML] 10 ML OPHTHALMIC SOLUTION OU SCH (08:47)
== END 2017-03-12 11:40 | disposition short-term general hospital (02) | DRG 870 ==
LOC: EMS 08:43 → 5S 10:46 → ICU 03-05 10:27
PROVIDERS: ADMIT Internal Medicine; ATTEND Internal Medicine
PROC: 5A1955Z Respiratory Ventilation, Greater than 96 Consecutive Hours (ICD-10-PCS; principal; 2017-03-05)
PROC: 0BH18EZ Insertion of Endotracheal Airway into Trachea, Via Natural or Artificial Opening Endoscopic (ICD-10-PCS; 2017-03-05)
DX: A41.9 Sepsis, unspecified organism (principal); J96.02 Acute respiratory failure with hypercapnia; G92 Toxic encephalopathy; E87.4 Mixed disorder of acid-base balance; I50.31 Acute diastolic (congestive) heart failure; I47.2 Ventricular tachycardia; E87.1 Hypo-osmolality and hyponatremia; N17.9 Acute kidney failure, unspecified; E11.9 Type 2 diabetes mellitus without complications; I35.0 Nonrheumatic aortic (valve) stenosis; I25.10 Atherosclerotic heart disease of native coronary artery without angina pectoris; Z95.5 Presence of coronary angioplasty implant and graft; I11.0 Hypertensive heart disease with heart failure; Z96.652 Presence of left artificial knee joint; M19.90 Unspecified osteoarthritis, unspecified site; I48.0 Paroxysmal atrial fibrillation; E87.6 Hypokalemia; E83.42 Hypomagnesemia; Z91.013 Allergy to seafood; Z82.5 Family history of asthma and other chronic lower respiratory diseases; Z82.49 Family history of ischemic heart disease and other diseases of the circulatory system; Z79.82 Long term (current) use of aspirin; Z79.899 Other long term (current) drug therapy
CPT/HCPCS: 71250; 82533; 82805; 83036; 83735; 83935; 84100; 84132; 84145; 84295; 84300; 84443; 87040; 87070; 87081; 87086; 87205; 90471; 92610; 93005; 93306; 94002; 94003; 94640; 94660; 96374; 99285; J0282; J0330; J0696; J1160; J1265; J1630; J1644; J1940; J2060; J2405; J2704; J3010; J3475; J3480; J3490; J7050; J7060

== ENCOUNTER → 2019-02-20 | Outpatient (CLI) | payer MEDICARE, OTHER ==
[~2019-02-20] MED LIST changes: +CHOL100018 PO; +FURO-152 PO; -ROSU10 PO; +ROSU10TA22 PO; -VITAD1000 PO
== END | disposition home or self-care (01) ==
LOC: RADPV 14:16
PROVIDERS: ATTEND Internal Medicine Cardiovascular Disease
DX: J18.9 Pneumonia, unspecified organism (principal)

== ENCOUNTER 2021-10-16 18:59 | Emergency (ER) | payer MEDICARE, OTHER ==
[~2021-10-16] VITALS: Ht 160 cm; Wt 65.0 kg
[~2021-10-16 18:59] MED LIST changes: -ROSU10TA22 PO; +ROSU10TA72 PO
[2021-10-16] MEDS ORDERED: BUME1TAB6 PO (19:18)
[2021-10-16] MEDS ORDERED: EMPA10TA PO (19:18)
[2021-10-16] MEDS ORDERED: FLUT16H NASAL (19:18)
[2021-10-16] MEDS ORDERED: VALS80TA32 PO (19:18)
[2021-10-16] MEDS ORDERED: MAGN250T9 PO (19:18)
[2021-10-16] MEDS ORDERED: LEVO50 PO (19:18)
[2021-10-16] MEDS ORDERED: APIX2.5T PO (19:18)
[2021-10-16] MEDS ORDERED: TIMO5DRO7 OS (19:18)
[2021-10-16] MEDS ORDERED: METO-408 PO (19:18)
[2021-10-16] MEDS ORDERED: METO25 PO (19:18)
[2021-10-16] MEDS ORDERED: LATA5DRO OU (19:18)
[2021-10-16] MEDS ORDERED: CHOL25TA4 PO (19:18)
[2021-10-16] MEDS ORDERED: BRIN8DRO OD (19:18)
[2021-10-16] MEDS ORDERED: ROSU20TA73 PO (19:18)
[2021-10-16] MEDS ORDERED: DOCU-350 PO (19:18)
[2021-10-16 20:46] VITALS: BP 127/77
== END 2021-10-16 21:03 | disposition home or self-care (01) ==
LOC: EMS 19:05
DX: S09.90XA Unspecified injury of head, initial encounter (principal); M19.90 Unspecified osteoarthritis, unspecified site; I25.10 Atherosclerotic heart disease of native coronary artery without angina pectoris; I11.0 Hypertensive heart disease with heart failure; I50.9 Heart failure, unspecified; Z96.652 Presence of left artificial knee joint; Z98.890 Other specified postprocedural states; Z91.013 Allergy to seafood; W06.XXXA Fall from bed, initial encounter; Y93.89 Activity, other specified; Y92.89 Other specified places as the place of occurrence of the external cause; Y99.8 Other external cause status
CPT/HCPCS: 70450; 99284